=== PATIENT | female | born 1965 | race African-American/Black ===

== ENCOUNTER 2016-07-18 10:05 | Emergency (ER) | payer OTHER ==
[~2016-07-18] VITALS: Ht 162.6 cm; Wt 136.7 kg
[~2016-07-18 10:05] MED LIST: ANTI-ITCH28.4 GM TP; ASPIR 8181 M1 PO; BENGAY ULTRA S1 EACH TP; ERGOCALCIF50000 UNIT PO; FLEXERIL10 MG PO; GLUCOPHAGE500 MG PO; INDOCIN25 MG PO; IRBESARTAN300 MG PO; LO-DOSE ASPIRIN81 M1 PO; MECLIZINE HCL25 MG PO; METFORMIN HCL500 MG PO; METOPROLOL SUCC25 MG PO; MINIVELLE1 EACH TD; MORGIDOX100 MG PO; MOTRIN600 MG PO; MOTRIN800 MG PO; NEXIUM 24HR20 MG PO; OXYCODONE HCL10 MG PO; PERCOCET 10/1 TABLET PO; PHENTERMINE HCL30 MG PO; PRISTIQ50 MG PO; PROCARDIA XL90 MG PO; PROTONIX40 MG PO; TIZANIDINE HCL4 MG PO; VOLTAREN 1% GE100 GM TP
[2016-07-18 10:21] VITALS: BP 134/79
[2016-07-18] MEDS ORDERED: MOTRIN800 MG PO (11:16)
== END 2016-07-18 11:25 | disposition home or self-care (01) ==
LOC: EME 10:05
DX: S63.612A Unspecified sprain of right middle finger, initial encounter (principal); W23.0XXA Caught, crushed, jammed, or pinched between moving objects, initial encounter; Y92.810 Car as the place of occurrence of the external cause; I10 Essential (primary) hypertension; E11.9 Type 2 diabetes mellitus without complications; F17.200 Nicotine dependence, unspecified, uncomplicated
CPT/HCPCS: 73140; 99281; 99283

== ENCOUNTER 2016-12-05 15:34 | Emergency (ER) | payer OTHER ==
[~2016-12-05] VITALS: Ht 162.6 cm; Wt 141.1 kg
[2016-12-05 16:46] LABS: HEMATOCRIT 44.6 % (36.0-46.0); MCH 29.3 PG (29.0-34.0); MCHC 32.3 G/DL (30.0-36.0); MCV 90.7 FL (83-99); MEAN PLAT.VOLUME 9.6 uM^3 (9.5-12.4); PLATELET COUNT 291 K/uL (156-360); RBC DIS.WIDTH-CV 13.6 % (11.8-14.6); RBC DIS.WIDTH-SD 45.6 % (39-53); RED BLOOD COUNT 4.92 M/uL (3.80-5.20); WHITE BLOOD COUNT 7.1 K/uL (4.1-10.2)
[2016-12-05 16:55] LABS: CHLORIDE 104 mEq/L (99-109); POTASSIUM 3.9 mEq/L (3.7-5.4); SODIUM 139 mEq/L (136-147)
[2016-12-05 16:56] LABS: GLUCOSE 129 mg/dL (70-99)
[2016-12-05 16:58] LABS: ANION GAP 9 MEQ/L (2-14)
[2016-12-05 17:00] LABS: GFR ESTIMATE (CALCULATED) > 59 mL/min/
[2016-12-05 17:01] LABS: UREA NITROGEN (BUN) 17 mg/dL (9-23)
[2016-12-05 17:06] LABS: TROP-I INTERPRETATION NEGATIVE; TROPONIN-I < 0.01 ng/mL (0.0-0.30)
[2016-12-05 17:56] LABS: TOTAL BILIRUBIN 0.3 mg/dL (0.0-1.0)
[2016-12-05 17:57] LABS: ALKALINE PHOSPHATASE 66 IU/L (3-129)
[2016-12-05 18:00] LABS: DIRECT BILIRUBIN 0.1 mg/dL (0.0-0.3)
[2016-12-05 18:01] LABS: LIPASE 24 U/L (1.0-51.0)
[2016-12-05 19:19] LABS: TROP-I INTERPRETATION NEGATIVE; TROPONIN-I < 0.01 ng/mL (0.0-0.30)
[2016-12-05 19:28] LABS: ADD MIUA? YES; BILIRUBIN NEGATIVE; BLOOD NEGATIVE; COLOR YELLOW ((YELLOW)); GLUCOSE (STRIP) NEGATIVE; KETONES NEGATIVE; LEUKOCYTES SMALL; NITRITE NEGATIVE; PROTEIN (STRIP) 30; SPECIFIC GRAVITY 1.031 (1.000-1.030); UROBILINOGEN 0.2 MG/DL (0.2-1.0)
[2016-12-05 19:45] LABS: BACTERIA NONE SEEN /HPF; EPITHELIAL CELLS 2+ /HPF; MUCUS 1+ /LPF; RED BLOOD CELLS 0-5 /HPF (0-5); WHITE BLOOD CELLS 0-5 /HPF (0-5)
[2016-12-05] MEDS ORDERED: ZOFRAN ODT4 MG PO (19:59)
[2016-12-05] MEDS ORDERED: NAPROSYN500 MG PO (19:59)
[2016-12-05 20:34] VITALS: BP 135/96
== END 2016-12-05 20:36 | disposition home or self-care (01) ==
LOC: EXP 15:34 → EME 15:34 → EXP 20:36
PROVIDERS: Nurse Practitioner Family
DX: R07.89 Other chest pain (principal); E66.01 Morbid (severe) obesity due to excess calories; Z68.43 Body mass index [BMI] 50.0-59.9, adult; E11.9 Type 2 diabetes mellitus without complications; K92.1 Melena; K64.9 Unspecified hemorrhoids; F17.200 Nicotine dependence, unspecified, uncomplicated; J45.909 Unspecified asthma, uncomplicated; Z79.84 Long term (current) use of oral hypoglycemic drugs
CPT/HCPCS: 71020; 80048; 80076; 81003; 83690; 84484; 85027; 93005; 94640; 99281; 99284

== ENCOUNTER 2017-03-17 07:48 | Emergency (ER) | payer OTHER ==
[~2017-03-17] VITALS: Ht 162.6 cm; Wt 144.1 kg
[~2017-03-17 07:48] MED LIST changes: +NAPROSYN500 MG PO; +ZOFRAN ODT4 MG PO
[2017-03-17] MEDS ORDERED: CLEOCIN300 MG PO (09:14)
[2017-03-17 09:35] VITALS: BP 148/98
== END 2017-03-17 09:35 | disposition home or self-care (01) ==
LOC: EME 07:48
PROC: 0H9JXZZ Drainage of Left Upper Leg Skin, External Approach (ICD-10-PCS; principal; 2017-03-17)
DX: L02.416 Cutaneous abscess of left lower limb (principal); J45.909 Unspecified asthma, uncomplicated; E11.9 Type 2 diabetes mellitus without complications; Z79.84 Long term (current) use of oral hypoglycemic drugs; F17.200 Nicotine dependence, unspecified, uncomplicated
CPT/HCPCS: 87070; 87075; 87076; 87185; 87205; 99281; 99284

== ENCOUNTER 2017-09-27 22:36 | Emergency (ER) | payer OTHER ==
[~2017-09-27] VITALS: Ht 162.6 cm; Wt 145.5 kg
[~2017-09-27 22:36] MED LIST changes: +CLEOCIN300 MG PO
[2017-09-28 01:25] LABS: APPEARANCE SL.HAZY ((CLEAR)); BILIRUBIN NEGATIVE; BLOOD NEGATIVE; COLOR YELLOW ((YELLOW)); GLUCOSE (STRIP) NEGATIVE; KETONES 5; LEUKOCYTES NEGATIVE; NITRITE NEGATIVE; PROTEIN (STRIP) 30; SPECIFIC GRAVITY 1.029 (1.000-1.030)
[2017-09-28 01:30] LABS: BACTERIA RARE /HPF; EPITHELIAL CELLS 1+ /HPF; HYALINE CASTS 0-5 /LPF; MUCUS TRACE /LPF; RED BLOOD CELLS 0-5 /HPF (0-5); WHITE BLOOD CELLS 0-5 /HPF (0-5)
[2017-09-28] MEDS ORDERED: LIDODERM 5% P1 PATCH TD (02:15)
[2017-09-28] MEDS ORDERED: VALIUM5 MG PO (02:15)
[2017-09-28] MEDS ORDERED: INDOCIN50 MG PO (02:15)
[2017-09-28 02:48] VITALS: BP 146/118
== END 2017-09-28 02:49 | disposition home or self-care (01) ==
LOC: EME 22:36
PROVIDERS: Physician Assistant
DX: M54.5 Low back pain (principal); G89.29 Other chronic pain; F17.200 Nicotine dependence, unspecified, uncomplicated; Z79.891 Long term (current) use of opiate analgesic; Z79.84 Long term (current) use of oral hypoglycemic drugs; Z87.39 Personal history of other diseases of the musculoskeletal system and connective tissue; Z88.5 Allergy status to narcotic agent
CPT/HCPCS: 81003; 82948; 99281; 99284; J1100; J1885

== ENCOUNTER 2017-11-25 21:43 | Emergency (ER) | payer OTHER ==
[~2017-11-25] VITALS: Ht 162.6 cm; Wt 143.0 kg
[~2017-11-25 21:43] MED LIST changes: +INDOCIN50 MG PO; +LIDODERM 5% P1 PATCH TD; +VALIUM5 MG PO
[2017-11-25 23:00] LABS: HEMATOCRIT 42.1 % (36.0-46.0); HEMOGLOBIN 14.1 G/DL (11.9-15.5); MCH 30.3 PG (29.0-34.0); MCHC 33.5 G/DL (30.0-36.0); MCV 90.5 FL (83-99); PLATELET COUNT 267 K/uL (156-360); RBC DIS.WIDTH-CV 13.6 % (11.8-14.6); RBC DIS.WIDTH-SD 45.2 % (39-53); RED BLOOD COUNT 4.65 M/uL (3.80-5.20)
[2017-11-25 23:16] LABS: CHLORIDE 99 mEq/L (99-109); POTASSIUM 3.8 mEq/L (3.7-5.4); SODIUM 141 mEq/L (136-147)
[2017-11-25 23:17] LABS: GLUCOSE 124 mg/dL (70-99)
[2017-11-25 23:21] LABS: CREATININE 0.9 mg/dL (0.6-1.3); GFR ESTIMATE (CALCULATED) > 59 mL/min/
[2017-11-25 23:22] LABS: UREA NITROGEN (BUN) 11 mg/dL (9-23)
[2017-11-25 23:35] LABS: TROP-I INTERPRETATION NEGATIVE; TROPONIN-I < 0.01 ng/mL (0.0-0.30)
[2017-11-26] MEDS ORDERED: KEFLEX500 MG PO (00:44)
[2017-11-26] MEDS ORDERED: BACTRIM,SEPT1 TABLET PO (00:44)
[2017-11-26 01:35] LABS: TROP-I INTERPRETATION NEGATIVE; TROPONIN-I < 0.01 ng/mL (0.0-0.30)
[2017-11-26 02:28] VITALS: BP 130/91
== END 2017-11-26 02:29 | disposition home or self-care (01) ==
LOC: EME 21:43
PROVIDERS: Emergency Medicine
DX: R07.89 Other chest pain (principal); L03.311 Cellulitis of abdominal wall; E11.9 Type 2 diabetes mellitus without complications; Z79.84 Long term (current) use of oral hypoglycemic drugs; I10 Essential (primary) hypertension; F17.200 Nicotine dependence, unspecified, uncomplicated; J45.909 Unspecified asthma, uncomplicated; Z88.5 Allergy status to narcotic agent
CPT/HCPCS: 71046; 80048; 83880; 84484; 85027; 87070; 87075; 87076; 87185; 87205; 93005; 99281; 99285

== ENCOUNTER 2018-02-10 03:31 | Inpatient (IN) | payer OTHER ==
[~2018-02-10] VITALS: Ht 162.6 cm; Wt 139.6 kg
[~2018-02-10 03:31] MED LIST changes: +BACTRIM,SEPT1 TABLET PO; +KEFLEX500 MG PO
[2018-02-10 03:52] LABS: HEMATOCRIT 41.4 % (36.0-46.0); HEMOGLOBIN 13.9 G/DL (11.9-15.5); MCH 29.7 PG (29.0-34.0); MCHC 33.6 G/DL (30.0-36.0); MCV 88.5 FL (83-99); PLATELET COUNT 249 K/uL (156-360); RBC DIS.WIDTH-CV 13.2 % (11.8-14.6); RBC DIS.WIDTH-SD 42.7 % (39-53); RED BLOOD COUNT 4.68 M/uL (3.80-5.20); WHITE BLOOD COUNT 8.1 K/uL (4.1-10.2)
[2018-02-10 04:12] LABS: ALBUMIN 3.5 G/DL (3.2-4.8); CHLORIDE 105 MEQ/L (99-109); DIRECT BILIRUBIN 0.1 mg/dL (0.0-0.3); POTASSIUM 3.4 MEQ/L (3.7-5.4); SODIUM 141 MEQ/L (136-147); TOTAL BILIRUBIN 0.5 MG/DL (0.0-1.0)
[2018-02-10 04:18] LABS: ALKALINE PHOSPHATASE 51 IU/L (3-129); ALT (GPT) 12 IU/L (3-49); AST (GOT) 14 IU/L (2-34); CREATININE 0.8 MG/DL (0.6-1.3); GFR ESTIMATE (CALCULATED) > 59 mL/min/; GLUCOSE 141 mg/dL (70-99); LIPASE 16 U/L (1.0-51.0); TOTAL PROTEIN 7.3 G/DL (6.4-8.3); TROP-I INTERPRETATION NEGATIVE; TROPONIN-I < 0.01 ng/mL (0.0-0.30); UREA NITROGEN (BUN) 9 mg/dL (9-23)
[2018-02-10 04:44] LABS: INTER. NORMALIZED RATIO 1.1; PTT 30.2 SEC (25-37)
[2018-02-10] MEDS ORDERED: ZITHROMAX Z-PA250 MG PO (04:45)
[2018-02-10 07:43] VITALS: BP 168/98
[2018-02-10] MEDS ORDERED: LINZESS290 MCG PO (10:20)
[2018-02-10] MEDS ORDERED: LASIX40 MG PO (10:21)
[2018-02-10] MEDS ORDERED: CONSTULOSE10 GM/15 M PO (10:22)
[2018-02-10] MEDS ORDERED: K-DUR20 MEQ PO (10:23)
[2018-02-10 11:35] VITALS: BP 143/95
[2018-02-10 14:58] LABS: TROP-I INTERPRETATION NEGATIVE; TROPONIN-I < 0.01 ng/mL (0.0-0.30)
[2018-02-10 15:59] VITALS: BP 140/86
[2018-02-10 19:42] VITALS: BP 149/87
[2018-02-10 23:36] VITALS: BP 148/96
[2018-02-11 03:50] VITALS: BP 159/90
[2018-02-11 07:40] VITALS: BP 165/90
[2018-02-11 11:00] VITALS: BP 136/75
[2018-02-11 18:58] VITALS: BP 139/83
[2018-02-11 21:31] VITALS: BP 141/85
[2018-02-11 23:18] VITALS: BP 136/83
[2018-02-12 07:32] VITALS: BP 154/90
[2018-02-12] MEDS ORDERED: LOSARTAN POTAS100 MG PO (15:23)
[2018-02-12] MEDS ORDERED: LOPRESSOR25 MG PO (15:23)
[2018-02-12] MEDS ORDERED: NIFEDIPINE ER90 MG PO (15:23)
== END 2018-02-12 15:49 | disposition home or self-care (01) | DRG 194 ==
LOC: EME → EDBD 03:31 → EDOF 06:18 → 2EAST 06:18 → ENRESERV 06:22 → 2EAST 07:35
PROVIDERS: Emergency Medicine; Internal Medicine
DX: J18.9 Pneumonia, unspecified organism (principal); J45.909 Unspecified asthma, uncomplicated; E11.9 Type 2 diabetes mellitus without complications; I10 Essential (primary) hypertension; K21.9 Gastro-esophageal reflux disease without esophagitis; F32.9 Major depressive disorder, single episode, unspecified; F17.210 Nicotine dependence, cigarettes, uncomplicated; E66.01 Morbid (severe) obesity due to excess calories; Z88.5 Allergy status to narcotic agent; Z68.43 Body mass index [BMI] 50.0-59.9, adult
CPT/HCPCS: 71046; 71275; 80048; 80076; 82948; 83690; 83880; 84484; 85027; 85610; 85730; 87040; 93005; 99281; 99284; J0696; J1100; J1200; J1650; J1815; J1956; J2405

== ENCOUNTER 2018-02-27 13:34 | Observation (INO) | payer OTHER ==
[~2018-02-27] VITALS: Ht 162.6 cm; Wt 143.5 kg
[~2018-02-27 13:34] MED LIST changes: +CONSTULOSE10 GM/15 M PO; +K-DUR20 MEQ PO; +LASIX40 MG PO; +LINZESS290 MCG PO; +LOPRESSOR25 MG PO; +LOSARTAN POTAS100 MG PO; +NIFEDIPINE ER90 MG PO; +ZITHROMAX Z-PA250 MG PO
[2018-02-27 13:52] LABS: HEMATOCRIT 39.9 % (36.0-46.0); HEMOGLOBIN 13.3 G/DL (11.9-15.5); MCH 29.6 PG (29.0-34.0); MCHC 33.3 G/DL (30.0-36.0); MCV 88.9 FL (83-99); PLATELET COUNT 300 K/uL (156-360); RBC DIS.WIDTH-CV 13.7 % (11.8-14.6); RBC DIS.WIDTH-SD 44.7 % (39-53); RED BLOOD COUNT 4.49 M/uL (3.80-5.20); WHITE BLOOD COUNT 8.2 K/uL (4.1-10.2)
[2018-02-27 14:02] LABS: ALBUMIN 3.6 g/dL (3.2-4.8)
[2018-02-27 14:02] LABS: BILIRUBIN NEGATIVE; BLOOD NEGATIVE; COLOR YELLOW ((YELLOW)); GLUCOSE (STRIP) NEGATIVE; KETONES 5; LEUKOCYTES LARGE; NITRITE NEGATIVE; PROTEIN (STRIP) 30; SPECIFIC GRAVITY 1.025 (1.000-1.030); UROBILINOGEN 0.2 MG/DL (0.2-1.0)
[2018-02-27 14:03] LABS: CHLORIDE 105 mEq/L (99-109); POTASSIUM 3.6 mEq/L (3.7-5.4); SODIUM 143 mEq/L (136-147)
[2018-02-27 14:04] LABS: APPEARANCE SL.HAZY ((CLEAR))
[2018-02-27 14:05] LABS: GLUCOSE 117 mg/dL (70-99); TOTAL PROTEIN 7.3 g/dL (6.4-8.3)
[2018-02-27 14:07] LABS: TOTAL BILIRUBIN 0.3 mg/dL (0.0-1.0)
[2018-02-27 14:08] LABS: ALKALINE PHOSPHATASE 58 IU/L (3-129)
[2018-02-27 14:09] LABS: CREATININE 0.9 mg/dL (0.6-1.3); GFR ESTIMATE (CALCULATED) > 59 mL/min/
[2018-02-27 14:10] LABS: AST (GOT) 17 IU/L (2-34); UREA NITROGEN (BUN) 10 mg/dL (9-23)
[2018-02-27 14:12] LABS: ALT (GPT) 14 IU/L (3-49)
[2018-02-27 14:15] LABS: BACTERIA RARE /HPF; EPITHELIAL CELLS 3+ /HPF; HYALINE CASTS 0-5 /LPF; MUCUS TRACE /LPF; RED BLOOD CELLS 0-5 /HPF (0-5); UCUL ADDED? NO; WHITE BLOOD CELLS 0-5 /HPF (0-5)
[2018-02-27 14:26] LABS: QUANTITATIVE HCG < 4.0 MIU/ML
[2018-02-27 16:20] LABS: LIPASE 25 U/L (1.0-51.0)
[2018-02-27] MEDS ORDERED: PROBIOTIC1 EAC1 PO (18:49)
[2018-02-27 21:59] VITALS: BP 179/96
[2018-02-27 23:57] VITALS: BP 178/86
[2018-02-28 03:13] VITALS: BP 146/98
[2018-02-28 05:20] VITALS: BP 166/83
[2018-02-28 07:17] VITALS: BP 154/73
[2018-02-28 11:07] VITALS: BP 163/99
[2018-02-28] MEDS ORDERED: NIFEDIPINE ER90 MG PO (11:32)
[2018-02-28] MEDS ORDERED: CARAFATE1 GM PO (11:33)
== END 2018-02-28 13:11 | disposition home or self-care (01) ==
LOC: EME 13:34 → EDOF 20:10 → 4SOUTH 20:10 → ENRESERV 20:13 → 4SOUTH 21:43
PROVIDERS: Hospitalist
DX: R10.84 Generalized abdominal pain (principal); R11.2 Nausea with vomiting, unspecified; E87.6 Hypokalemia; I10 Essential (primary) hypertension; E66.01 Morbid (severe) obesity due to excess calories; E11.9 Type 2 diabetes mellitus without complications; K21.9 Gastro-esophageal reflux disease without esophagitis; Z87.01 Personal history of pneumonia (recurrent); K92.1 Melena; J45.909 Unspecified asthma, uncomplicated; Z90.49 Acquired absence of other specified parts of digestive tract; Z79.84 Long term (current) use of oral hypoglycemic drugs; F17.210 Nicotine dependence, cigarettes, uncomplicated; K76.89 Other specified diseases of liver; F32.9 Major depressive disorder, single episode, unspecified; Z83.3 Family history of diabetes mellitus; Z82.49 Family history of ischemic heart disease and other diseases of the circulatory system; Z82.3 Family history of stroke; Z88.5 Allergy status to narcotic agent; Z88.1 Allergy status to other antibiotic agents
CPT/HCPCS: 74177; 80053; 81003; 82948; 83690; 84702; 85027; 93005; 99281; 99285; C9113; G0378; J0360; J1170; J1885; J2405; J2765; J7050